=== PATIENT | female | born 1995 ===

== ENCOUNTER 2017-03-09 10:14 | Emergency (ER) | payer OTHER ==
[2017-03-09 10:32] VITALS: RESP 16
--- NOTE | 2017-03-09 10:36 | C.PDOC ---
History Of Present Illness Patient is a 21 y/o female, , 7 weeks , presents to the ED for evaluation of light vaginal bleeding, and lower abdominal cramping for the past 4 days. Patient states she was seen by OBGYN, Dr. Walsh, 2 days ago, and was given prescription of ultrasound. Otherwise, pt denies any n/v/d, fever, chills , or any other associated symptoms at this time. Time Seen by Provider: 03/09/17 10:27 Chief Complaint (Nursing): Female Genitourinary History Per: Patient History/Exam Limitations: no limitations Onset/Duration Of Symptoms: Days (4) Current Symptoms Are (Timing): Gone Severity: Mild Quality Of Discomfort: Cramping, "Pain" Associated Symptoms: denies: Fever, Chills, Nausea, Vomiting, Diarrhea, Loss Of Appetite, Back Pain, Chest Pain, Constipation, Urinary Symptoms Alleviating Factors: None Recent travel outside of the [place]: No Abnormal Vaginal Bleeding: Yes : 2 Para: 1 Past Medical History Reviewed: Historical Data, Nursing Documentation, Vital Signs Vital Signs: Last Vital Signs Temp 98.0 F 03/09/17 10:29 Pulse 90 03/09/17 10:29 Resp 16 03/09/17 10:29 BP 109/69 03/09/17 10:29 Pulse Ox 100 03/09/17 11:54 - Medical History PMH: No Chronic Diseases Family History: States: No Known Family Hx - Social History Hx Tobacco Use: No Hx Alcohol Use: No Hx Substance Use: No - Immunization History Hx Tetanus Toxoid Vaccination: Yes Hx Influenza Vaccination: No Hx Pneumococcal Vaccination: No Review Of Systems Except As Marked, All Systems Reviewed And Found Negative. Constitutional: Negative for: Fever, Chills Gastrointestinal: Positive for: Abdominal Pain (lower abdominal ). Negative for : Nausea, Vomiting, Diarrhea, Constipation Genitourinary: Negative for: Dysuria Musculoskeletal: Negative for: Back Pain Physical Exam - Physical Exam Appears: Non-toxic, No Acute Distress Skin: Normal Color, Warm, Dry Head: Atraumatic, Normacephalic Eye(s): bilateral: Normal Inspection, EOMI Oral Mucosa: Moist Neck: Normal ROM, Supple Chest: Symmetrical Cardiovascular: Rhythm Regular Respiratory: Normal Breath Sounds, No Rales, No Rhonchi, No Wheezing Gastrointestinal/Abdominal: Normal Exam, Soft, No Tenderness, No Guarding, No Rebound Back: Normal Inspection, No CVA Tenderness, No Vertebral Tenderness, No Paraspinal Tenderness Extremity: Normal ROM Neurological/Psych: Oriented x3, Normal Speech Gait: Steady ED Course And Treatment - Laboratory Results Result Diagrams: 03/09/17 10:53 03/09/17 10:53 Lab Interpretation: No Acute Changes O2 Sat by Pulse Oximetry: 100 (on RA) Pulse Ox Interpretation: Normal - CT Scan/US OB US Other Rad Studies (CT/US): Read By Radiologist, Radiology Report Reviewed CT/US Interpretation: Creator : Gabby Alfaro MD. Dictator : Gabby Alfaro MD. Helminthology Teacher : Analytical Research Program Manager : Gabby Alfaro MD. Approver2 : Report Date : 03/09/2017 11:30:24. My Comment : . Indication : preg, bleed, pelvic pain. Comparison: None available. Technique: Real-time transabdominal pelvic ultrasound was performed. In addition a transvaginal pelvic ultrasound was necessary to better depict pelvic anatomy. Findings: Uterus measures approximately 9.3 x 5.7 x 7.2 cm. Anteverted. Cervix length measures approximately 3.4 cm. There is a single intrauterine fetus present. The gestational sac measures 1.8 cm and is compatible with a gestational age of 6 weeks 1 day. The crown-rump length measures 0.9 cm and is compatible with a gestational age of 6 weeks 6 days. There is heart motion which measured 127.8 BPM. The right ovary measures 2.9 x 1.9 x 3.1 cm. The left ovary measures 3.4 x 2.1 x 3.4 cm. 1.4 x 1.2 x 1.2 cm probable left ovarian cyst. Blood flow was demonstrated to both ovaries. Impression: Live single intrauterine with estimated gestational age 6 weeks 1 day by gestational sac calculation and 6 weeks 6 days by crown-rump length calculation. heart rate 127.8 bpm. Advise an anomaly screen at 16-18 weeks gestational age Progress Note: Labs, and transvaginal ultrasound ordered and reviewed. On reassessment, patient is resting comfortably, no acute distress. Abdomen remains soft, and non-tender. Medical Decision Making Medical Decision Makin y.o female with complaints of pain and bleeding, must rule out ectopic, suspect threatened Labs WNL BHCG >[id number] US Impression: Live single intrauterine with estimated gestational age 6 weeks 1 day by gestational sac calculation and 6 weeks 6 days by crown- rump length calculation. heart rate 127.8 bpm. Advise an anomaly screen at 16-18 weeks gestational age Patient remained well and in no acute distress. Hemodynamically stable. Discussed results and gave copy of reports. Patient to follow up with dr Walsh Disposition Counseled Patient/Family Regarding: Need For Followup - Disposition Referrals: Chaim Walsh MD [Staff Provider] - Disposition: HOME/ ROUTINE Disposition Time: 11:53 Condition: STABLE Additional Instructions: La ecografa muestra 6 semanas de embarazo Seguimiento con raymond ob / fibre technologist Dr Walsh Instructions: Threatened Miscarriage (ED) Print Language: YEMENI - POA Present On Arrival: None - Clinical Impression Clinical Impression: Threatened - PA / NOTARY PUBLIC / Resident Statement MD/DO has reviewed & agrees with the documentation as recorded. - Scribe Statement The provider has reviewed the documentation as recorded by the Scribe Galo Brown All medical record entries made by the Scribe were at my direction and personally dictated by me. I have reviewed the chart and agree that the record accurately reflects my personal performance of the history, physical exam, medical decision making, and the department course for this patient. I have also personally directed, reviewed, and agree with the discharge instructions and disposition.
[2017-03-09 11:00] LABS: BASO % 0.9 % (0.0-2.0); EOS # 0.1 K/uL (0.0-0.7); HEMATOCRIT 36.7 % (34.0-47.0); LYMPH # 2.1 K/uL (1.0-4.3); LYMPH % 41.4 % (20.0-40.0); MEAN CELL VOLUME 83.7 fL (81.0-99.0); MEAN CORPUSCULAR HEMOGLOBIN 27.2 pg (27.0-31.0); MEAN CORPUSCULAR HGB CONC 32.4 g/dL (33.0-37.0); MEAN PLATELET VOLUME 10.8 fL (7.2-11.7); MONO # 0.5 K/uL (0.0-0.8); MONO % 10.4 % (0.0-10.0); RED CELL DISTRIBUTION WIDTH 12.8 % (11.5-14.5); WHITE BLOOD COUNT 5.2 K/uL (4.8-10.8)
[2017-03-09 11:07] LABS: RBC URINE 15 /hpf (0-3); URINE BACTERIA OCC (<OCC); URINE BILIRUBIN NEGATIVE (NEGATIVE); URINE BLOOD 3+ (NEGATIVE); URINE COLOR Yellow (YELLOW); URINE GLUCOSE (UA) NORMAL (Normal); URINE KETONE NEGATIVE (NEGATIVE); URINE LEUKOCYTE ESTERASE TRACE Leu/uL (Negative); URINE PROTEIN NEGATIVE (NEGATIVE); URINE UROBILINOGEN NORMAL mg/dL (0.2-1.0); WBC URINE 3 /hpf (0-5)
[2017-03-09 11:12] LABS: CHLORIDE 98 mmol/L (98-107)
[2017-03-09 11:13] LABS: POTASSIUM 3.5 mmol/L (3.6-5.2); SODIUM 131 mmol/L (132-148)
[2017-03-09 11:15] LABS: ALB/GLOB RATIO 1.6 (1.0-2.1); AST/SGOT 17 U/L (14-36); BILIRUBIN,TOTAL < 0.1 mg/dL (0.2-1.3); BLOOD UREA NITROGEN 9 mg/dL (7-17); CARBON DIOXIDE 25 mmol/L (22-30); GFR AFRICAN-AMERICAN > 60; TOTAL PROTEIN 7.5 g/dL (6.3-8.3)
[2017-03-09 11:16] LABS: ALKALINE PHOSPHATASE 57 U/L (38-126); ALT/SGPT 28 U/L (9-52); CALCIUM 8.8 mg/dl (8.6-10.4); GLUCOSE,RANDOM 75 mg/dL (65-105)
--- NOTE | 2017-03-09 11:32 | US ---
Indication: preg, bleed, pelvic pain Comparison: None available Technique: Real-time transabdominal pelvic ultrasound was performed. In addition a transvaginal pelvic ultrasound was necessary to better depict pelvic anatomy Findings: Uterus measures approximately 9.3 x 5.7 x 7.2 cm. Anteverted. Cervix length measures approximately 3.4 cm. There is a single intrauterine fetus present. The gestational sac measures 1.8 cm and is compatible with a gestational age of 6 weeks 1 day. The crown-rump length measures 0.9 cm and is compatible with a gestational age of 6 weeks 6 days. There is heart motion which measured 127.8 BPM. The right ovary measures 2.9 x 1.9 x 3.1 cm. The left ovary measures 3.4 x 2.1 x 3.4 cm. 1.4 x 1.2 x 1.2 cm probable left ovarian cyst. Blood flow was demonstrated to both ovaries. Impression: Live single intrauterine with estimated gestational age 6 weeks 1 day by gestational sac calculation and 6 weeks 6 days by crown-rump length calculation. heart rate 127.8 bpm. Advise an anomaly screen at 16-18 weeks gestational age
[2017-03-09 12:35] VITALS: BP 102/66; PULSE 60; TEMP 98.4; O2SAT 99
== END 2017-03-09 12:15 | disposition home or self-care (01) ==
LOC: C.ER 10:14
DX: O20.0 Threatened abortion (principal); Z3A.01 Less than 8 weeks gestation of pregnancy

== ENCOUNTER 2017-04-13 16:55 | Emergency (ER) | payer OTHER ==
[2017-04-13] MEDS ORDERED: Sodium Chloride 0.9% 1,000 ML IV ONE (17:38)
[2017-04-13 17:58] LABS: BASO # 0.1 K/uL (0.0-0.2); BASO % 0.8 % (0.0-2.0); EOS % 0.4 % (0.0-4.0); HEMATOCRIT 36.2 % (34.0-47.0); LYMPH # 2.1 K/uL (1.0-4.3); LYMPH % 30.2 % (20.0-40.0); MEAN CORPUSCULAR HEMOGLOBIN 27.2 pg (27.0-31.0); MEAN CORPUSCULAR HGB CONC 32.8 g/dL (33.0-37.0); MEAN PLATELET VOLUME 10.8 fL (7.2-11.7); MONO # 0.7 K/uL (0.0-0.8); MONO % 10.3 % (0.0-10.0); RED CELL DISTRIBUTION WIDTH 13.2 % (11.5-14.5)
[2017-04-13 18:05] LABS: RBC URINE 39 /hpf (0-3); URINE BACTERIA OCC (<OCC); URINE BILIRUBIN NEGATIVE (NEGATIVE); URINE BLOOD 3+ (NEGATIVE); URINE COLOR Yellow (YELLOW); URINE GLUCOSE (UA) NORMAL (Normal); URINE KETONE NEGATIVE (NEGATIVE); URINE LEUKOCYTE ESTERASE 3+ Leu/uL (Negative); URINE PROTEIN NEGATIVE (NEGATIVE); URINE UROBILINOGEN NORMAL mg/dL (0.2-1.0); WBC URINE 24 /hpf (0-5)
[2017-04-13 18:07] LABS: CHLORIDE 102 mmol/L (98-107); SODIUM 135 mmol/L (132-148)
[2017-04-13 18:09] LABS: ALB/GLOB RATIO 1.4 (1.0-2.1); ALKALINE PHOSPHATASE 57 U/L (38-126); AST/SGOT 28 U/L (14-36); BILIRUBIN,TOTAL 0.6 mg/dL (0.2-1.3); CARBON DIOXIDE 21 mmol/L (22-30); GFR AFRICAN-AMERICAN > 60; TOTAL PROTEIN 7.8 g/dL (6.3-8.3)
[2017-04-13 18:10] LABS: ALT/SGPT 19 U/L (9-52); BLOOD UREA NITROGEN 8 mg/dL (7-17); CALCIUM 8.9 mg/dl (8.6-10.4); GLUCOSE,RANDOM 88 mg/dL (65-105)
[2017-04-13 18:13] LABS: POTASSIUM 3.8 mmol/L (3.6-5.2)
--- NOTE | 2017-04-13 18:20 | US ---
Indication: Vaginal bleeding Comparison: 1st trimester ultrasound performed 03/09/17 Technique: Transabdominal pelvic ultrasound. Findings: The uterus measures approximately 10.6 x 6.7 x 9.9 cm. Anteverted. Cervix length measures approximately 3.1 cm. There is a single intrauterine fetus present. The crown-rump length measures 5.6 cm and is compatible with a gestational age of 12 weeks 2 days. There is heart motion which measured 150.2 BPM. Bilateral ovaries were not visualized. Impression: Live single intrauterine with estimated gestational age 12 weeks 2 days. heart rate 50.2 bpm. Advise an anomaly screen at 16-18 weeks gestational age
[2017-04-13] MEDS ORDERED: Sodium Chloride 0.9% 1,000 ML ONE (18:23)
--- NOTE | 2017-04-13 18:33 | C.PDOC ---
History Of Present Illness 22 year old patient presents to the ED complaining of vaginal spotting since yesterday. Patient also complains of mild nausea. Her last menstrual period was 01/18/17. Patient is 12 weeks ; 3, para 1011. Patient denies vomiting, fever, dysuria, or hematuria. Time Seen by Provider: 04/13/17 17:38 Chief Complaint (Nursing): Female Genitourinary History Per: Patient History/Exam Limitations: no limitations Onset/Duration Of Symptoms: Days (yesterday) Current Symptoms Are (Timing): Still Present Severity: Mild Pain Scale Rating Of: 3 Quality Of Discomfort: "Pain" Associated Symptoms: Nausea, Other (vaginal spotting) Alleviating Factors: None Recent travel outside of the [place]: No Abnormal Vaginal Bleeding: Yes Last Menstral Period: 01/18/17 Past Medical History Reviewed: Historical Data, Nursing Documentation, Vital Signs Vital Signs: Last Vital Signs Temp 98.6 F 04/13/17 18:45 Pulse 80 04/13/17 18:45 Resp 20 04/13/17 18:45 BP 118/75 04/13/17 18:45 Pulse Ox 97 04/13/17 18:47 Family History: States: Unknown Family Hx - Social History Hx Tobacco Use: No Hx Alcohol Use: No Hx Substance Use: No - Immunization History Hx Tetanus Toxoid Vaccination: Yes Hx Influenza Vaccination: No Hx Pneumococcal Vaccination: No Review Of Systems Except As Marked, All Systems Reviewed And Found Negative. Constitutional: Negative for: Fever Gastrointestinal: Positive for: Nausea, Abdominal Pain (suprapubic). Negative for: Vomiting Genitourinary: Positive for: Vaginal Bleeding (spotting). Negative for: Dysuria , Hematuria Physical Exam - Physical Exam Appears: Non-toxic, No Acute Distress Skin: Warm, Dry Head: Atraumatic, Normacephalic Neck: Normal ROM, Supple Chest: Symmetrical Cardiovascular: Rhythm Regular Respiratory: Normal Breath Sounds, No Rales, No Rhonchi, No Wheezing Gastrointestinal/Abdominal: Soft, Tenderness (suprapubic), No Guarding, No Rebound Back: Normal Inspection, No CVA Tenderness Extremity: Normal ROM Extremity: Bilateral: Atraumatic Neurological/Psych: Oriented x3, Normal Speech, Normal Cognition Gait: Steady ED Course And Treatment - Laboratory Results Result Diagrams: 04/13/17 17:54 04/13/17 17:54 O2 Sat by Pulse Oximetry: 97 (room air) Pulse Ox Interpretation: Normal - CT Scan/US 1st trimester US Other Rad Studies (CT/US): Read By Radiologist (Gabby Garner MD), Radiology Report Reviewed CT/US Interpretation: ADDENDUM: Please note heart rate measured 150.2 beats per minute. Typographical error is noted in the impression. This was discussed with Dr. Guillen on 04/13/17 at 6:23 p.m.. [ Addendum Report Added by Gabby Alfaro MD at 04/13/2017 18:24:22 ]. Indication: Vaginal bleeding. Comparison: 1st trimester ultrasound performed 03/09/17. Technique: Transabdominal pelvic ultrasound. Findings: The uterus measures approximately 10.6 x 6.7 x 9.9 cm. Anteverted. Cervix length measures approximately 3.1 cm. There is a single intrauterine fetus present. The crown- rump length measures 5.6 cm and is compatible with a gestational age of 12 weeks 2 days. There is heart motion which measured 150.2 BPM. Bilateral ovaries were not visualized. Impression: Live single intrauterine with estimated gestational age 12 weeks 2 days. heart rate 50.2 bpm. Advise an anomaly screen at 16-18 weeks gestational age Progress Note: Plan: Labs, IV fluids, 1st trimester US Disposition - Disposition Referrals: Xenon Arcgabrielle Berger, [Non-Staff] - Disposition: HOME/ ROUTINE Disposition Time: 18:30 Condition: GOOD Additional Instructions: Thank you for letting us take care of you today. Your provider was Dr. Guillen. You were treated for vaginal bleeding during . The emergency medical care you received today was directed at your acute symptoms. If you were prescribed any medication, please fill it and take as directed. It may take several days for your symptoms to resolve. Return to the Emergency Department if your symptoms worsen, do not improve, or if you have any other problems. Please contact your doctor or call one of the physicians/clinics you have been referred to that are listed on the Patient Visit Information form that is included in your discharge packet. Bring any paperwork you were given at discharge with you along with any medications you are taking to your follow up visit. Our treatment cannot replace ongoing medical care by a primary care provider (PCP) outside of the emergency department. Thank you for allowing the [facility] team to be part of your care today. Follow up with your doctor in 3-4 days for re-evaluation. Instructions: Threatened Miscarriage (ED) - Clinical Impression Clinical Impression: Threatened - Scribe Statement The provider has reviewed the documentation as recorded by the Scribe Rena Brown Provider Attestation: All medical record entries made by the Scribe were at my direction and personally dictated by me. I have reviewed the chart and agree that the record accurately reflects my personal performance of the history, physical exam, medical decision making, and the department course for this patient. I have also personally directed, reviewed, and agree with the discharge instructions and disposition.
[2017-04-13 18:46] VITALS: BP 118/75; PULSE 80; RESP 20; TEMP 98.6; O2SAT 97
== END 2017-04-13 18:58 | disposition home or self-care (01) ==
LOC: C.ER 16:55
DX: O20.0 Threatened abortion (principal); Z3A.12 12 weeks gestation of pregnancy
CPT/HCPCS: 76801; 80053; 81001; 83690; 84702; 85025; 87086; 96360; 99284; J7040

== ENCOUNTER 2017-10-10 22:40 | Emergency (ER) | payer OTHER ==
--- NOTE | 2017-10-10 23:25 | OBHP ---
Datetime: 10/10/2017 23:19 IP Adm Impression: Term, intrauterine ; No Active Labor IP Admit Plan: Discharge home Admit Comment, IP Provider: chief complaint-contraction HPI at 37 weeks and 6 days with c/o feeling a contraction at 8 pm and then once again 20 min priuro to her arrival here Denies vaginal bleeding or loss of fluid.Reports active featl movement cours euncomplicated a sper patient; PNC at [facility]; No prenatals available PMH denies PSH denies OBGYN HX Social hx denies tobacco,alcohol or illicit drug use Exam see exam section A/P at 37.65 wga with c/o ctx.no active labor, and maternal status reassuirng -discharge home -active laborprecautions given -followup in clinic this week Pelvic Type - PN: Adequate Extremities - PN: Normal Abdomen - PN: Normal Back - PN: Normal Lungs - PN: Normal Heart - PN: Normal General - PN: Normal Contraction Comments Provider: occ Gestation - Est Wks by US: 37.6 EGA AdmitDate IP: 38.0 Vital Signs Provider: Reviewed IP Chief Complaint: Uterine contractions FHR Category Provider Fetus A: Category I Dilatation, Provider: 0 Effacement, Provider: 30 Station, Provider: -3 Genitourinary Exam: Normal DTRs - PN: Normal
[2017-10-11 04:46] VITALS: BP 117/68; PULSE 87
== END 2017-10-10 23:35 | disposition home or self-care (01) ==
LOC: C.EROB 22:40
DX: O47.1 False labor at or after 37 completed weeks of gestation (principal); Z3A.37 37 weeks gestation of pregnancy

== ENCOUNTER 2017-10-26 02:23 | Inpatient (IN) | payer MEDICAID, OTHER ==
--- NOTE | 2017-10-26 02:53 | OBADHP ---
Datetime: 10/26/2017 02:51 Admit Comment, IP Provider: at 40=weeeks her c/o ctxs started last night, irr, 02/06, no vb, lof ,+fm obhx 1 x pmh de med pnv all nkda psh de soch de ve /-2 a/p at 40+weks in labor admit tol_d npo/ivf labs cont huy and efm gbs prop anticipqate Pelvic Type - PN: Adequate Extremities - PN: Normal Abdomen - PN: Normal Back - PN: Normal Breast - PN: Normal Lungs - PN: Normal Heart - PN: Normal Thyroid - PN: Normal Neurologic - PN: Normal HEENT - PN: Normal General - PN: Normal FHR - Baseline A Provider: 120 Contraction Comments Provider: q1-3 IP Hx Assessment: The History has been Reviewed and is Current Vital Signs Provider: Reviewed; Within Normal Limits IP Chief Complaint: Uterine contractions NICHD Variability Prov Fetus A: Moderate 6-25bpm NICHD Accel Fetus A IP Provider: 15X15 FHR Category Provider Fetus A: Category I Dilatation, Provider: 2 Effacement, Provider: 60 Station, Provider: -2 Genitourinary Exam: Normal DTRs - PN: Normal EGA AdmitDate IP: 40.1 IP Adm Impression: Term, intrauterine IP Admit Plan: Admit to unit; Initiate labor protocol Datetime: 10/10/2017 23:19 Gestation - Est Wks by US: 37.6
[2017-10-26 02:54] VITALS: BMI 34.4
[2017-10-26] MEDS ORDERED: Penicillin G 5 Million Unit Vial IVPB ONE (02:54)
[2017-10-26] MEDS ORDERED: Lactated Ringer's 1,000 ML IV SCH (03:00)
[2017-10-26 03:46] LABS: BASO # 0.1 K/uL (0.0-0.2); BASO % 1.8 % (0.0-2.0); EOS # 0.1 K/uL (0.0-0.7); EOS % 0.8 % (0.0-4.0); HEMOGLOBIN 11.9 g/dL (11.0-16.0); LYMPH # 3.2 K/uL (1.0-4.3); LYMPH % 40.1 % (20.0-40.0); MEAN CELL VOLUME 83.2 fL (81.0-99.0); MEAN CORPUSCULAR HEMOGLOBIN 28.6 pg (27.0-31.0); MEAN CORPUSCULAR HGB CONC 34.3 g/dL (33.0-37.0); MEAN PLATELET VOLUME 10.9 fL (7.2-11.7); MONO # 0.7 K/uL (0.0-0.8); MONO % 9.3 % (0.0-10.0); NEUT # 3.8 K/uL (1.8-7.0); NRBC % 0.1 % (0.0-2.0); RBC 4.16 Mil/uL (3.80-5.20); RED CELL DISTRIBUTION WIDTH 13.2 % (11.5-14.5); WHITE BLOOD COUNT 7.9 K/uL (4.8-10.8)
[2017-10-26 03:47] LABS: SQUAMOUS EPITHIAL < 1 /hpf (0-5); URINE AMORPHOUS SEDIMENT RARE /ul (<OCC); URINE BACTERIA RARE (<OCC); URINE BILIRUBIN NEGATIVE (NEGATIVE); URINE BLOOD NEGATIVE (NEGATIVE); URINE CLARITY Clear (Clear); URINE COLOR Yellow (YELLOW); URINE GLUCOSE (UA) NORMAL (Normal); URINE LEUKOCYTE ESTERASE NEG Leu/uL (Negative); URINE NITRATE NEGATIVE (NEGATIVE); URINE PROTEIN NEGATIVE (NEGATIVE); URINE UROBILINOGEN NORMAL mg/dL (0.2-1.0)
[2017-10-26 03:49] LABS: ALBUMIN 3.5 g/dL (3.5-5.0); ALT/SGPT 22 U/L (9-52); AST/SGOT 20 U/L (14-36); BLOOD UREA NITROGEN 9 mg/dL (7-17); CALCIUM 8.3 mg/dl (8.6-10.4); GFR AFRICAN-AMERICAN > 60; GFR NON-AFRICAN AMERICAN > 60
[2017-10-26] MEDS: Penicillin G Potassium 2.5 MU in Sodium Chloride 0.9% 100 ML IV SCH ×3 (04:41→11:55)
[2017-10-26] MEDS ORDERED: Bupivacaine 0.125%/FentaNYL 200 ML EPI ONE (07:43)
--- NOTE | 2017-10-26 09:31 | OBPN ---
Datetime: 10/26/2017 09:24 IP Progress Impression: Normal progression of labor; Rupture of membranes IP Procedures: Sterile Vag Exam; Epidural Placement IP Progress Plan: Continue present management Membranes, Provider: Intact Contraction Comments Provider: Q 2-3 FHR - Baseline A Provider: 150 Gestation - Est Wks by US: 40.0 Presentation-Admit: Vertex IP Progress Note Comment: IUP at 40wks in active labor ROM. Intermittent variables on FHR Plan: IV Bolus Positioning Monitor the progress of Labor. NICHD Accel Fetus A IP Provider: 10X10 FHR Category Provider Fetus A: Category I NICHD Variability Prov Fetus A: Moderate 6-25bpm Dilatation, Provider: 5 Effacement, Provider: 90 Station, Provider: 0 NICHD Decel Fetus A IP Provider: Variable Datetime: 10/26/2017 02:51 Vital Signs Provider: Reviewed; Within Normal Limits
[2017-10-26] MEDS ORDERED: Oxytocin 30 UNIT 30 UNITS/500 ML BAG IV SCH (12:15)
--- NOTE | 2017-10-26 14:15 | OBDS ---
DELIVERY PERSONNEL Delivery Doctor: Patience Vela MD Project Structural Engineer: Derek Ponce RN Anesthesiologist: DR GARCIA MATERNAL INFORMATION Delivery Anesthesia: Epidural Estimated Blood Loss (ml): 150 Provider Comments: Uncomplicated Spontaneous vaginal delivery of a viable male infant with BW 3790gm and scores 9 and 9. EBL- 150mls. No lacerations. LABOR SUMMARY EDC: 10/25/2017 00:00 No. Babies in Womb: 1 LABOR INFORMATION Onset of Labor: 10/26/2017 00:00 Group B Beta Strep: Positive Steroids Given: None Reason Steroids Not Administered: Not Applicable MEMBRANES Membranes Rupture Method: Spontaneous Rupture of Membranes: 10/26/2017 06:23 Length of Rupture (hrs): 7.47 Amniotic Fluid Color: Clear Amniotic Fluid Amount: Copious Amniotic Fluid Odor: Normal STAGES OF LABOR Stage 3 hrs: 0 Stage 3 min: 6 Total Time in Labor hrs: 13 Total Time in Labor min: 57 VAGINAL DELIVERY Episiotomy: None Laceration Extension: N/A Laceration Type: None Initial Vag Sponge Count: 10 Final Vag Sponge Count: 10 Initial Vag Sharps Count: 0 Final Vag Sharps Count: 0 Sponge Count Correct: Yes; Vaginal Sweep Performed BABY A INFORMATION Delivery Date/Time: 10/26/2017 13:51 Method of Delivery: Vaginal Born in Route : No : N/A Forceps: N/A Vacuum Extraction: N/A Shoulder Dystocia : No SHOULDER DYSTOCIA BABY A Infant Delivery Date/Time: 10/26/2017 13:51 PRESENTATION/POSITION BABY A Presentation: Cephalic Cephalic Presentation: Vertex Vertex Position: Left Occipital Posterior PLACENTA INFORMATION BABY A Placenta Delivery Time : 10/26/2017 13:57 Placenta Method of Delivery: Spontaneous Placenta Status: Delivered SCORES BABY A Heart Rate 1 min: >100 bpm Resp Effort 1 min: Good Cry Reflex Irritability 1 min: Cough or Sneeze or Pulls Away Muscle Tone 1 min: Active Motion Color 1 min: Body Success, Extremities Blue SCORE 1 MIN: 9 Heart Rate 5 min: >100 bpm Resp Effort 5 min: Good Cry Reflex Irritability 5 min: Cough or Sneeze or Pulls Away Muscle Tone 5 min: Active Motion Color 5 min: Body Success, Extremities Blue SCORE 5 MIN: 9 INFANT INFORMATION BABY A Gestational Age at Delivery: 40.1 Gestational Status: Term Outcome : Liveborn Infant Condition : Stable Infant Sex: Male IDENTIFICATION/MEDS BABY A ID Band Number: [id number] ID Band Location: Left Leg; Left Arm Sensor Applied: Yes Sensor Number: [id number] Sensor Location : Cord Clamp WEIGHT/LENGTH BABY A Birthweight (gms): 3790 Weight (lb): 8 Weight (oz): 6 Infant Length Inches: 21.50 Length cms: 54.6 CORD INFORMATION BABY A No. Cord Vessels: 3 Nuchal Cord : N/A Cord Blood Taken: Yes Infant Suction: Mouth; Nose ASSESSMENT BABY A Infant Complications: None Physical Findings at Delivery: Within Normal Limits Infant Respirations: Appears Normal Culinary Art Teacher/ALS Called : No Transferred To: Remains with Mother
[2017-10-27 07:34] LABS: MEAN CELL VOLUME 83.7 fL (81.0-99.0); MEAN CORPUSCULAR HEMOGLOBIN 27.9 pg (27.0-31.0); MEAN CORPUSCULAR HGB CONC 33.3 g/dL (33.0-37.0); MEAN PLATELET VOLUME 10.5 fL (7.2-11.7); RBC 3.93 Mil/uL (3.80-5.20); RED CELL DISTRIBUTION WIDTH 13.4 % (11.5-14.5); WHITE BLOOD COUNT 10.5 K/uL (4.8-10.8)
[2017-10-27 16:14] VITALS: O2SAT 98
--- NOTE | 2017-10-27 16:52 | OBPPN ---
Datetime: 10/27/2017 08:37 PP Pain Prov: Within normal limits PP Nausea Prov: Denies PP Flatus Prov: Yes PP BM Prov: Yes PP Breasts Prov: Normal PP Heart Prov: Normal PP Lungs Prov: Normal PP Abdomen/Uterus Prov: Normal PP Lochia Prov: Normal PP Vulva/Perineum Prov: Normal PP CVA Tenderness Prov: Normal PP Extremities Prov: Normal PP Impression Prov: Normal progression PP Plan Prov: Continue present management PP Progress Note Prov: 22 year old s/p normal spontaneous vaginal delivery without laceratio ns or complications and with epidural who is breast feeding. Patient denies nausea and vomiting, has passed bowels and is voiding, and has mild lochia with 2-3 pads. Patient's pain is well controlled, being a 2/10 going to a 0/10 with ibuprofen. Patient's vitals are stable, has regular rate and rhythm, is clear to auscultation bilaterally, an d fundus is 1.5 fingers below umbilicus. Vital Signs Provider PP: Reviewed; Within Normal Limits
[2017-10-28 00:06] VITALS: TEMP 97.3
[2017-10-28 08:42] VITALS: BP 111/66; PULSE 85; RESP 18
--- NOTE | 2017-10-28 10:43 | OBPPN ---
Datetime: 10/28/2017 10:40 PP Pain Prov: Within normal limits PP Nausea Prov: Denies PP Flatus Prov: Yes PP Breasts Prov: Normal PP Heart Prov: Normal PP Lungs Prov: Normal PP Abdomen/Uterus Prov: Normal PP Lochia Prov: Normal PP Vulva/Perineum Prov: Normal PP CVA Tenderness Prov: Normal PP Extremities Prov: Normal PP Comments Phys Exam Prov: Abd: Soft, Nt, BS- present UT- Firm PP Impression Prov: Normal progression PP Plan Prov: Discharge PP Progress Note Prov: S/P , PPD #2 Clinically Stable. Plan: D/c Home.
--- NOTE | 2017-10-28 10:46 | OBDCSUM ---
Datetime: 10/28/2017 07:27 Discharged to, Provider: Home Follow up at, Provider: [facility] Disch Instr Activity: Normal activity; May Shower Disch Instr Diet: Regular Discharge Diet restrict Prov: none Discharge Instructions, Provider: Routine instructions given Discharge Diagnosis, Provider: Term Delivered Discharge Time: 10/28/2017 11:00 Follow up in weeks, Provider: 6 weeks Disch Referrals: None Contraception discussed, Prov: Yes Disch Activity Restrictions: No exercising; No lifting; No sexual activity; Nothing in vagina - Inte rcourse, tampons, douche Discharge Comment, Provider: S/P Uncomplicated , clinically Stable Discharge Diagnosis Prov Other: S/P Uncomplicated , clinically Stable
== END 2017-10-28 14:40 | disposition home or self-care (01) | DRG 373 ==
LOC: C.EROB 02:23 → C.4D 02:54 → C.4M 15:42
PROVIDERS: ADMIT Obstetrics & Gynecology; ATTEND Obstetrics & Gynecology
PROC: 10E0XZZ Delivery of Products of Conception, External Approach (ICD-10-PCS; principal; 2017-10-26)
PROC: 10907ZC Drainage of Amniotic Fluid, Therapeutic from Products of Conception, Via Natural or Artificial Opening (ICD-10-PCS; 2017-10-26)
DX: O99.824 Streptococcus B carrier state complicating childbirth (principal); Z37.0 Single live birth; Z3A.40 40 weeks gestation of pregnancy